=== PATIENT | male | born 1955 | race Caucasian/White ===

== ENCOUNTER → 2023-08-07 | Outpatient (CLI) | payer MEDICARE, OTHER ==
[~2023-08-07] MED LIST: ACET-1025 PO; AMLO5TAB16 PO; CHLO25TA10 PO; IODIXANOL 320 MG/ML INFUS..BTL 100ML IV ONE; LISI40TA13 PO; MULT-1085 PO; OMEG1CAP20 PO; PIOG30TA71 PO; ROSU20TA73 PO; SEMA0.258; ZOLP5TAB8 PO
[2023-08-07 11:43] LABS: BASOPHILS # (AUTO) 0.1 X10'3 (0-0.2); BASOPHILS % (AUTO) 0.8 % (0-1); EOSINOPHILS # (AUTO) 0.3 X10'3 (0-0.9); EOSINOPHILS % (AUTO) 4.7 % (0-6); HEMATOCRIT 43.5 % (42.0-52.0); LYMPHOCYTES # (AUTO) 1.7 X10'3 (1.1-4.8); LYMPHOCYTES % (AUTO) 25.1 % (21-51); MEAN CORPUSCULAR HEMOGLOBIN 29.7 PG (27.0-31.0); MEAN CORPUSCULAR HGB CONC 34.4 g/dL (33.0-36.5); MEAN CORPUSCULAR VOLUME 86.4 FL (78-98); MEAN PLATELET VOLUME 9.8 FL (7.4-10.4); MONOCYTES # (AUTO) 0.5 X10'3 (0-0.9); MONOCYTES % (AUTO) 6.6 % (2-12); NEUTROPHILS # (AUTO) 4.3 X10'3 (1.8-7.7); NEUTROPHILS % (AUTO) 62.8 % (42-75); PLATELET COUNT 166 X10'3 (140-440); RED BLOOD COUNT 5.03 X10'6 (4.70-6.10); RED CELL DISTRIBUTION WIDTH 13.2 % (11.5-14.5); WHITE BLOOD COUNT 6.9 X10'3 (4.5-11.0)
[2023-08-07 12:02] LABS: APTT 28 SECONDS (22-32); PROTHROMBIN TIME 10.3 SECONDS (9.0-12.0)
[2023-08-07 12:09] LABS: ALANINE AMINOTRANSFERASE 24 U/L (12-78); ALBUMIN/GLOBULIN RATIO 1.3 (1.1-1.5); ALKALINE PHOSPHATASE 49 IU/L (46-116); ANION GAP 8 (8-16); ASPARTATE AMINO TRANSFERASE 13 U/L (10-37); BILIRUBIN,TOTAL 0.4 MG/DL (0.1-1.0); BLOOD UREA NITROGEN 16 MG/DL (7-18); BUN/CREATININE RATIO 15.1 (10.0-20.0); CALCIUM 8.9 MG/DL (8.5-10.1); CHLORIDE 105 MMOL/L (99-107); CREATININE 1.06 MG/DL (0.60-1.10); GLUCOSE 111 MG/DL (70-104); POTASSIUM 3.5 MMOL/L (3.5-5.1); SODIUM 143 MMOL/L (135-145); TOTAL CARBON DIOXIDE 30.4 MMOL/L (24-32); TOTAL PROTEIN 7.2 G/DL (6.4-8.2); eGFR 70 ML/MIN
[2023-08-07 12:18] LABS: PRO BRAIN NATRIURETIC PEPTIDE 38 PG/ML (0-125)
== END | disposition home or self-care (01) ==
LOC: RAD 10:38
PROVIDERS: ATTEND Internal Medicine Cardiovascular Disease
DX: K40.90 Unilateral inguinal hernia, without obstruction or gangrene, not specified as recurrent (principal); I35.0 Nonrheumatic aortic (valve) stenosis; R06.02 Shortness of breath; I65.29 Occlusion and stenosis of unspecified carotid artery; I70.0 Atherosclerosis of aorta; R91.8 Other nonspecific abnormal finding of lung field; Z98.1 Arthrodesis status
CPT/HCPCS: 36415; 71046; 71275; 74174; 75572; 80053; 83880; 85025; 85610; 85730; 94010; 94727; 94729; J3490; Q9967

== ENCOUNTER 2023-09-17 07:28 | Inpatient (IN) | payer MEDICARE, OTHER ==
[2023-09-11 11:16] LABS: BASOPHILS % (AUTO) 0.7 % (0-1); EOSINOPHILS # (AUTO) 0.2 X10'3 (0-0.9); EOSINOPHILS % (AUTO) 3.2 % (0-6); LYMPHOCYTES # (AUTO) 1.3 X10'3 (1.1-4.8); LYMPHOCYTES % (AUTO) 18.2 % (21-51); MEAN CORPUSCULAR HEMOGLOBIN 29.2 PG (27.0-31.0); MEAN CORPUSCULAR HGB CONC 33.7 g/dL (33.0-36.5); MEAN CORPUSCULAR VOLUME 86.8 FL (78-98); MEAN PLATELET VOLUME 9.5 FL (7.4-10.4); MONOCYTES # (AUTO) 0.7 X10'3 (0-0.9); NEUTROPHILS % (AUTO) 67.9 % (42-75); PRE OP HEMATOCRIT 45.6 % (42.0-52.0); PRE OP HEMOGLOBIN 15.4 g/dL (14.0-17.9); PRE OP PLATELET COUNT 150 X10'3 (140-440); PRE OP WHITE BLOOD COUNT 7.4 10'3 (4.8-10.8); RED BLOOD COUNT 5.25 X10'6 (4.70-6.10); RED CELL DISTRIBUTION WIDTH 13.5 % (11.5-14.5)
[2023-09-11 11:17] LABS: BILIRUBIN,URINE NEGATIVE (Neg); CLARITY,URINE CLEAR (Clear); COLOR,URINE YELLOW (Yellow); GLUCOSE, URINE NEGATIVE (Neg); KETONES,URINE NEGATIVE (Neg); LEUKOCYTE ESTERASE ,URINE NEGATIVE (Neg); NITRITES, URINE NEGATIVE (Neg); OCCULT BLOOD,URINE NEGATIVE (Neg); PROTEIN,URINE NEGATIVE (Neg); UROBILINOGEN,URINE 0.2 E.U/dL (0.2-1.0)
[2023-09-11 11:22] LABS: UA COLLECTION TYPE NON-SPECIFIED
[2023-09-11 11:27] LABS: PRE OP PROTIME 10.3 SECONDS (9.0-12.0)
[2023-09-11 11:29] LABS: HEMOGLOBIN A1C 5.9 % (4.5-6.2)
[2023-09-11 11:35] LABS: ALBUMIN 4.1 G/DL (3.4-5.0); ALBUMIN/GLOBULIN RATIO 1.2 (1.1-1.5); ALKALINE PHOSPHATASE 45 IU/L (46-116); BLOOD UREA NITROGEN 14 MG/DL (7-18); BUN/CREATININE RATIO 14.3 (10.0-20.0); CALCIUM 9.2 MG/DL (8.5-10.1); CHLORIDE 104 MMOL/L (99-107); CREATININE 0.98 MG/DL (0.60-1.10); PRE OP ALT 36 U/L (30-65); PRE OP ANION GAP 7 (8-16); PRE OP AST 16 U/L (10-37); PRE OP BILIRUB, TOTAL 0.5 MG/DL (0.0-1.0); PRE OP GLUCOSE 140 MG/DL (70-104); PRE OP POTASSIUM 3.9 MMOL/L (3.4-5.1); PRE OP SODIUM 139 MMOL/L (135-145); PRO BRAIN NATRIURETIC PEPTIDE 35 PG/ML (0-125); TOTAL CARBON DIOXIDE 27.6 MMOL/L (24-32); TOTAL PROTEIN 7.6 G/DL (6.4-8.2); eGFR 76 ML/MIN
[~2023-09-17] VITALS: Ht 182.9 cm; Wt 99.8 kg
[2023-09-17] VITALS (26 sets, daily range): BP systolic 108–169; BP diastolic 60–91; PULSE 61–93; RESP 12–20; TEMP 97.3–97.8; O2SAT 94–100
[~2023-09-17 07:28] MED LIST changes: +ASCO-321 PO; -IODIXANOL 320 MG/ML INFUS..BTL 100ML IV ONE; -PIOG30TA71 PO; -SEMA0.258; -ZOLP5TAB8 PO; +ondansetron/PF 4mg/2ml inj IV PRN; +protamine sulfate 10mg/ml inj. ONE
[2023-09-17] MEDS: phenylephrine inj 50 MG in normal saline 250ml IV solN IV SCH (08:22)
[2023-09-17] MEDS: nitroPRUSSIDE (NIPRIDE) (200MCG/ML) 100ML Drip IV SCH (08:22)
[2023-09-17] MEDS: ringers solution, lacted 1,000 ML IV SCH (08:26)
[2023-09-17] MEDS: vancomycin 1,500 MG in NS 300ml IV soln IV ONE (08:27)
[2023-09-17] MEDS: famotidine 20mg tablet PO ONE (08:27)
[2023-09-17] MEDS: aspirin 325mg tablet PO ONE (08:27)
[2023-09-17] MEDS ORDERED: morphine 2 MG/ML inj. syringe IV PRN (08:50)
[2023-09-17] MEDS ORDERED: ringers solution, lacted 1,000 ML IV SCH (08:50)
[2023-09-17] MEDS ORDERED: morphine 4 MG/ML inj SYRINge IV PRN (08:50)
[2023-09-17] MEDS ORDERED: meperidine/PF 25mg/ml syringe IV PRN ×2 (08:50)
[2023-09-17] MEDS ORDERED: proCHLORperazine 10 MG/2 ml inj IV PRN ×2 (08:50→11:35)
[2023-09-17] MEDS ORDERED: iohexol 350MG/ML 100ml bottle IV ONE (10:17)
[2023-09-17] MEDS ORDERED: LIDOcaine 1% 30ml preserv. free vial ONE (10:17)
[2023-09-17] MEDS ORDERED: heparin 1,000 UNITS/NS 500ml 1,500 ML ONE (10:17)
[2023-09-17] MEDS ORDERED: heparin 1,000 UNITS/NS 500ml 500 ML ONE (10:18)
[2023-09-17] MEDS ORDERED: sevoflurane 250ml liquid IH ONE (10:27)
[2023-09-17] MEDS ORDERED: fentaNYL/PF 50MCG/1 ML 2ML syringe ONE (10:34)
[2023-09-17] MEDS ORDERED: midazolam 1 mg/ML 2ml injection ONE (10:35)
[2023-09-17] MEDS ORDERED: non-formulary drug (Acetaminophen (Tylenol Extra Strength) 1 TAB) PO PRN (10:40)
[2023-09-17] MEDS ORDERED: propofol inj 20 ML IV ONE (10:49)
[2023-09-17] MEDS ORDERED: heparin 1,000unit/ml 10ml vial 10 ML ONE (10:49)
[2023-09-17] MEDS ORDERED: potassium Cl 40MEQ/1/2NS 520ml 520 ML IV PRN (11:35)
[2023-09-17] MEDS ORDERED: magnesium 2GM in 50ml NS 50 ML IV PRN (11:35)
[2023-09-17] MEDS ORDERED: potassium Cl 20mEq/100mL bag 100 ML IV PRN (11:35)
[2023-09-17] MEDS ORDERED: potassium Cl 40MEQ/270ML bag 250 ML IV PRN (11:35)
[2023-09-17] MEDS ORDERED: potassium Cl 20 mEq SR tablet PO PRN (11:35)
[2023-09-17] MEDS: normal saline 1000ml 1,000 ML IV SCH (11:35)
[2023-09-17] MEDS ORDERED: docusate sod 100mg capsule PO PRN (11:35)
[2023-09-17] MEDS ORDERED: magnesium 4gm in 100ml NS 100 ML IV PRN (11:35)
[2023-09-17] MEDS ORDERED: acetaminophen 325mg tablet PO PRN (11:35)
[2023-09-17] MEDS ORDERED: ondansetron/PF 4mg/2ml inj IV PRN (11:35)
[2023-09-17] MEDS ORDERED: pantoprazole 40mg Tablet.DR PO PRN (11:35)
[2023-09-17] MEDS ORDERED: labetalol 20mg/4ml (5mg/ml) syringe IV PRN (11:35)
[2023-09-17] MEDS ORDERED: hydrALAZINE 20mg/ml inj. IV PRN (11:35)
[2023-09-17] MEDS ORDERED: diphenhydrAMINE 25mg capsule PO PRN (11:35)
[2023-09-17] MEDS ORDERED: potassium CL 10mEq/100ml bag 100 ML IV PRN (11:35)
[2023-09-17] MEDS: HYDROcodone/acetaminophen 5mg/325mg tablet PO PRN (13:06)
[2023-09-17] MEDS: meperidine/PF 25mg/ml syringe IV PRN (13:07)
[2023-09-17] MEDS: ondansetron/PF 4mg/2ml inj IV PRN (13:25)
[2023-09-17] MEDS: vancomycin/NS 1 GM ADD-VANTAGE 250 ML IV SCH (20:36)
[2023-09-17] MEDS: lisinopril 10 MG tablet PO SCH (20:36)
[2023-09-17] MEDS: ascorbic acid 500mg tablet PO SCH (20:36)
[2023-09-17] MEDS: sod chloride 0.9% 10ml flush syringe IV SCH (23:43)
[2023-09-18] MEDS: ALPRAZolam 0.25mg tablet PO PRN (01:11)
[2023-09-18 02:00] VITALS: BP 106/65; PULSE 71; RESP 17; TEMP 97.9; O2SAT 96
[2023-09-18 06:00] VITALS: BP 101/68; PULSE 73; RESP 13; TEMP 98.1; O2SAT 91
[2023-09-18 06:30] VITALS: O2SAT 93
[2023-09-18] MEDS: amLODIPine 5mg tablet PO SCH (07:26)
[2023-09-18] MEDS: multivitamins, therapeutics tablet PO SCH (07:26)
[2023-09-18] MEDS: atorvastatin 20mg tablet PO SCH (07:26)
[2023-09-18] MEDS: chlorthalidone 25mg tablet PO SCH (07:27)
[2023-09-18] MEDS: aspirin 81mg tab.chew PO SCH (07:27)
[2023-09-18] MEDS: OMEGA-3/DHA/EPA/FISH OIL 1 EACH CAPSULE.DR PO SCH (07:27)
[2023-09-18 07:47] LABS: BASOPHILS % (AUTO) 0.3 % (0-1); EOSINOPHILS # (AUTO) 0.1 X10'3 (0-0.9); EOSINOPHILS % (AUTO) 1.3 % (0-6); HEMATOCRIT 39.6 % (42.0-52.0); HEMOGLOBIN 13.4 g/dl (14.0-17.9); LYMPHOCYTES # (AUTO) 1.3 X10'3 (1.1-4.8); LYMPHOCYTES % (AUTO) 13.3 % (21-51); MEAN CORPUSCULAR HEMOGLOBIN 29.1 PG (27.0-31.0); MEAN CORPUSCULAR HGB CONC 33.8 g/dL (33.0-36.5); MEAN PLATELET VOLUME 9.5 FL (7.4-10.4); MONOCYTES # (AUTO) 1.1 X10'3 (0-0.9); MONOCYTES % (AUTO) 11.1 % (2-12); NEUTROPHILS # (AUTO) 7.2 X10'3 (1.8-7.7); PLATELET COUNT 107 X10'3 (140-440); RED BLOOD COUNT 4.61 X10'6 (4.70-6.10); RED CELL DISTRIBUTION WIDTH 13.7 % (11.5-14.5); WHITE BLOOD COUNT 9.7 X10'3 (4.5-11.0)
[2023-09-18 08:00] VITALS: RESP 13; O2SAT 91
[2023-09-18 08:10] LABS: ALANINE AMINOTRANSFERASE 23 U/L (12-78); ALBUMIN 3.2 G/DL (3.4-5.0); ALKALINE PHOSPHATASE 43 IU/L (46-116); ANION GAP 4 (8-16); ASPARTATE AMINO TRANSFERASE 11 U/L (10-37); BILIRUBIN,TOTAL 0.6 MG/DL (0.1-1.0); BLOOD UREA NITROGEN 10 MG/DL (7-18); BUN/CREATININE RATIO 11.2 (10.0-20.0); CALCIUM 8.2 MG/DL (8.5-10.1); CHLORIDE 103 MMOL/L (99-107); CREATININE 0.89 MG/DL (0.60-1.10); GLUCOSE 120 MG/DL (70-104); POTASSIUM 3.7 MMOL/L (3.5-5.1); PRO BRAIN NATRIURETIC PEPTIDE 71 PG/ML (0-125); SODIUM 136 MMOL/L (135-145); TOTAL CARBON DIOXIDE 29.4 MMOL/L (24-32); TOTAL PROTEIN 6.3 G/DL (6.4-8.2); eCRCL 88 ML/MIN; eGFR 85 ML/MIN
[2023-09-18 11:00] VITALS: BP 141/77; PULSE 86; RESP 22; TEMP 97.8; O2SAT 95
[2023-09-18 15:00] VITALS: BP 127/70; PULSE 81; RESP 20; TEMP 97.8; O2SAT 95
[2023-09-18] MEDS ORDERED: ASPI81TA53 PO (15:49)
== END 2023-09-18 16:43 | disposition home or self-care (01) | DRG 266 ==
LOC: PAS IN 07:28 → PCU 3S 16:58
PROVIDERS: ADMIT Internal Medicine Cardiovascular Disease; ATTEND Internal Medicine Cardiovascular Disease
PROC: 03HY32Z Insertion of Monitoring Device into Upper Artery, Percutaneous Approach (ICD-10-PCS; 2023-09-17)
PROC: B3101ZZ Fluoroscopy of Thoracic Aorta using Low Osmolar Contrast (ICD-10-PCS; 2023-09-17)
PROC: B41G1ZZ Fluoroscopy of Left Lower Extremity Arteries using Low Osmolar Contrast (ICD-10-PCS; 2023-09-17)
PROC: B41F1ZZ Fluoroscopy of Right Lower Extremity Arteries using Low Osmolar Contrast (ICD-10-PCS; 2023-09-17)
PROC: 02RF38N Replacement of Aortic Valve with Zooplastic Tissue, using Rapid Deployment Technique, Percutaneous Approach (ICD-10-PCS; principal; 2023-09-17 10:24)
DX: I35.0 Nonrheumatic aortic (valve) stenosis (principal); Z00.6 Encounter for examination for normal comparison and control in clinical research program; I50.33 Acute on chronic diastolic (congestive) heart failure; E66.01 Morbid (severe) obesity due to excess calories; E78.5 Hyperlipidemia, unspecified; I44.0 Atrioventricular block, first degree; I11.0 Hypertensive heart disease with heart failure; I45.4 Nonspecific intraventricular block; Z68.29 Body mass index [BMI] 29.0-29.9, adult
CPT/HCPCS: 33361; 36415; 71045; 71046; 76937; 80053; 81003; 82948; 83036; 83735; 83880; 85025; 85347; 85610; 85730; 86885; 86900; 86901; 86920; 87081; 93005; 93308; A4618; A6258; A6449; C1756; C1760; C1769; C1894; G0378; J1644; J2175; J2250; J2370; J2405; J2704; J2720; J3010; J3370; J3490; J7030; J7040; J7050; J7120; Q9967